=== PATIENT | female | born 1970 | race Caucasian/White ===

== ENCOUNTER 2021-06-04 21:29 | Inpatient (IN) | payer BC ==
[~2021-06-04] VITALS: Ht 160 cm; Wt 53.6 kg
[2021-06-04 21:47] LABS: BASO % 0.4 % (0.0-2.0); EOS # 0.1 K/mm3 (0.0-0.7); EOS % 0.8 % (0.0-4.0); GRAN # 4.7 K/mm3 (1.4-6.5); GRAN % 61.8 % (42.2-75.2); HEMOGLOBIN 12.2 g/dl (12.5-16.0); LYMPH # 2.2 K/mm3 (1.2-3.4); LYMPH % 28.9 % (20.0-51.0); MEAN CELL VOLUME 88 fl (80.0-100.0); MEAN CORPUSCULAR HEMOGLOBIN 29 pg (27-31); MEAN CORPUSCULAR HGB CONC 34 g/dl (33.0-37.0); MEAN PLATELET VOLUME 9.9 fl (7.4-10.4); MONO # 0.6 K/mm3 (0.1-0.6); MONO % 7.8 % (1.7-9.3); PLATELET COUNT 245 K/mm3 (130-400); RED BLOOD COUNT 4.16 M/mm3 (4.10-5.30); REDCELL DISTRIBUTION WIDTH-CV 12.8 % (11.5-14.5)
[2021-06-04] MEDS ORDERED: ASPIRIN 81M81 MG/TA2 PO (21:47)
[2021-06-04] MEDS ORDERED: PROTONIX 40MG T40 MG PO (21:47)
[2021-06-04 21:49] LABS: HEMATOCRIT 36.4 % (37.0-47.0)
[2021-06-04 21:55] LABS: PROTHROMBIN TIME 11.5 SECONDS (9.7-12.8)
[2021-06-04 21:58] LABS: PARTIAL THROMBOPLASTIN TIME 26.9 SECONDS (26.0-37.0)
[2021-06-04 22:04] LABS: ALANINE AMINOTRANSFERASE 19 U/L (0-55); ALBUMIN 4.1 gm/dL (3.5-5.0); ALKALINE PHOSPHATASE 55 U/L (40-150); ANION GAP 8 mmol/L (7-16); AST,SGOT 28 U/L (5-34); BILIRUBIN,TOTAL 0.4 mg/dL (0.2-1.2); BLOOD UREA NITROGEN 12 mg/dL (10-20); CALCIUM 8.9 mg/dL (8.4-10.2); CARBON DIOXIDE 23 mmol/L (22-29); CHLORIDE 108 mmol/L (98-107); CREATININE, serum 0.63 mg/dL (0.57-1.11); GLUCOSE 108 mg/dL (70-99); POTASSIUM 3.5 mmol/L (3.5-4.5); SODIUM 139 mmol/L (136-145); TOTAL PROTEIN 7.5 gm/dL (6.2-8.1)
[2021-06-04 22:35] LABS: TROPONIN-I < 0.010 ng/mL (0.00-0.033)
[2021-06-04 22:55] LABS: COLLECTION METHOD CLEAN CATCH
[2021-06-04 23:05] LABS: PH 7 (5-8); SQUAMOUS EPITHELIAL 0-2 /hpf (0-10); URINE APPEARANCE Clear (CLEAR/HAZY); URINE BACTERIA None Seen /hpf (NONE SEEN); URINE BILIRUBIN Negative (NEGATIVE); URINE BLOOD Negative (NEGATIVE); URINE COLOR Colorless (YELLOW); URINE GLUCOSE Negative (NEGATIVE); URINE KETONE Negative (NEGATIVE); URINE LEUKOCYTE ESTERASE Negative (NEGATIVE); URINE NITRATE Negative (NEGATIVE); URINE PROTEIN(semi-quant) Negative (NEGATIVE); URINE UROBILINOGEN Negative (NEGATIVE)
[2021-06-05] VITALS (12 sets, daily range): BP systolic 94–127; BP diastolic 51–88; PULSE 69–87; TEMP 98–98.2
[2021-06-05 04:15] LABS: BASO % 0.3 % (0.0-2.0); EOS # 0.1 K/mm3 (0.0-0.7); EOS % 0.9 % (0.0-4.0); GRAN # 3.9 K/mm3 (1.4-6.5); GRAN % 58.2 % (42.2-75.2); HEMOGLOBIN 11.1 g/dl (12.5-16.0); LYMPH # 2.2 K/mm3 (1.2-3.4); LYMPH % 32.6 % (20.0-51.0); MEAN CELL VOLUME 90 fl (80.0-100.0); MEAN CORPUSCULAR HEMOGLOBIN 30 pg (27-31); MEAN CORPUSCULAR HGB CONC 34 g/dl (33.0-37.0); MEAN PLATELET VOLUME 9.7 fl (7.4-10.4); MONO # 0.5 K/mm3 (0.1-0.6); MONO % 7.8 % (1.7-9.3); PLATELET COUNT 232 K/mm3 (130-400); RED BLOOD COUNT 3.65 M/mm3 (4.10-5.30); REDCELL DISTRIBUTION WIDTH-CV 12.9 % (11.5-14.5)
[2021-06-05 04:52] LABS: CALCIUM 8.2 mg/dL (8.4-10.2); CREATININE, serum 0.52 mg/dL (0.57-1.11); POTASSIUM 3.4 mmol/L (3.5-4.5)
[2021-06-05 05:02] LABS: TROPONIN-I 0.083 ng/mL (0.00-0.033)
--- NOTE | 2021-06-05 05:36 | NUR ---
HEPRIN DRIP STOPPED AT 0440HRS PER PROTOCOL AND RESTARTED AT 0540HRS AT 700UNITS/HR.
--- NOTE | 2021-06-05 07:00 | NUR ---
PT ARRIVED TO MEDICAL FLOOR AT 0035HRS TO [id number]. PT ARRIVED FROM ED WITH 125MG CARDIZEM RUNNING AT 5MLS/HR AND HEPARIN DRIP AT 9.5MLS/HR. PT A&O X 4; VSS; O2 RA. PT DENIED CHEST PAIN, SOB, N,V,D, OR DIZZINESS. ADMISSION ASSESSMENT AND MED REC COMPLETE. PT ORIENTED TO ROOM AND HOSPITAL POLICY. POC DISCUSSED WITH PT. PT VERBALIZED UNDERSTANDING. ALL QUESTIONS AND CONCERNS ADDRESSED. AROUND 0430HRS, PT COMPLAINED OF A HEADACHE SHE RATED AN 8. PHYSICIAN CALLED FOR TYLENOL ORDER. PT GIVEN TYLENOL FOR PAIN. PAIN MEDICATION HELPED HEADACHE PER PT. PT EXPRESSED NO OTHER NEEDS AT THIS TIME. CALL LIGHT WITHIN REACH.
--- NOTE | 2021-06-05 10:06 | NUR ---
ELSI met with the patient to discuss discharge plan. The patient lives in [place] with her , Javan (ph#[phone]). She reports independence with ADLs and does not have any DME. The patient's PCP is Dr. Orlando Mehta and she receives her medications from [facility] in . The patient does not have a DPOA-HC, but she was interested in obtaining a form. ELSI provided. The patient plans on returning home with her upon discharge. No additional needs at this time. *Discharge plan: home with *
[2021-06-05] MEDS ORDERED: TAMBOCOR50 MG PO (11:56)
[2021-06-05] MEDS ORDERED: TOPROL XL 25MG25 MG PO (11:56)
[2021-06-05] MEDS ORDERED: K-DUR20 MEQ PO (11:57)
--- NOTE | 2021-06-05 13:02 | NUR ---
First visit from the biofuels engineering manager. No needs right now.
--- NOTE | 2021-06-05 15:37 | NUR ---
Patient discharged home. IV and telemetry discontinued by this RN w/o any difficulty. Patient had no concerns at the time of discharge.
== END 2021-06-05 14:30 | disposition home or self-care (01) | DRG 310 ==
LOC: COL.ER → MEDICAL 23:15
PROVIDERS: Emergency Medicine; Physician Assistant; ADMIT Student in an Organized Health Care Education/Training Program
DX: I48.0 Paroxysmal atrial fibrillation (principal); I08.1 Rheumatic disorders of both mitral and tricuspid valves; K31.84 Gastroparesis
CPT/HCPCS: 99223-AI; 99239; J1644

== ENCOUNTER → 2023-07-08 | Outpatient (CLI) | payer BC ==
[~2023-07-08] MED LIST: ASPIRIN 81M81 MG/TA2 PO; K-DUR20 MEQ PO; PROTONIX 40MG T40 MG PO; TAMBOCOR50 MG PO; TOPROL XL 25MG25 MG PO
== END ==
LOC: COL.RAD 12:25
DX: K31.84 Gastroparesis (principal)